=== PATIENT | male | born 1970 | race Caucasian/White ===

== ENCOUNTER 2017-04-19 09:49 | Emergency (ER) | payer OTHER ==
[2017-04-19 10:11] VITALS: TEMP 98.1; BMI 28.2
[2017-04-19] MEDS ORDERED: KETOROLAC TROMETHAMINE 30 MG/1 ML VIAL IVPUSH ONE (10:50)
[2017-04-19] MEDS ORDERED: SODIUM CHLORIDE 1,000 ML IV STA (10:50)
--- NOTE | 2017-04-19 10:50 | PDOC ---
History of Present Illness - General Chief Complaint: Pain, Acute Stated Complaint: PELVIC PAIN Time Seen by Provider: 04/19/17 10:42 History Source: Patient - History of Present Illness Timing/Duration: reports: getting worse Abdominal Pain Onset Location: reports: flank Past History - Past Medical History Allergies/Adverse Reactions: Allergies Allergy/AdvReac Type Severity Reaction Status Date / Time Penicillins Allergy Verified 04/19/17 10:08 Home Medications: Ambulatory Orders Polyethylene Glycol 3350 [Miralax (For Daily Use) -] 17 gm PO DAILY #1 bottle - Suicide/Smoking/Psychosocial Hx Smoking History: Never smoked Review of Systems - Review of Systems Constitutional: No: Chills, Fever ABD/GI: No: Constipated, Diarrhea, Nausea, Vomiting : Yes: Flank Pain. No: Dysuria, Hematuria *Physical Exam - Vital Signs Last Vital Signs Temp Pulse Resp BP Pulse Ox 98.1 F 74 19 103/73 97 04/19/17 10:08 04/19/17 10:08 04/19/17 10:08 04/19/17 10:08 04/19/17 10:08 - Physical Exam General Appearance: Yes: Appropriately Dressed. No: Apparent Distress HEENT: positive: Normal Voice Neck: positive: Supple Respiratory/Chest: negative: Respiratory Distress Gastrointestinal/Abdominal: positive: Tender (to RLQ w/ ?RCVAT), Soft Musculoskeletal: positive: Normal Inspection Integumentary: positive: Dry, Warm Neurologic: positive: Fully Oriented, Alert, Normal Mood/Affect ED Treatment Course - LABORATORY CBC & Chemistry Diagram: 04/19/17 11:11 04/19/17 11:11 - RADIOLOGY Radiology Studies Ordered: Category Date Time Status ABDOMEN & PELVIS CT W/O CONTR [CT] Stat CT Scan 04/19/17 10:47 Ordered Medical Decision Making - Medical Decision Making 04/19/17 10:47 46-year-old male, s/p back surgery 3 years ago, here with right flank pain 1 week, getting worse. Denies dysuria, hematuria, nausea, vomiting, change in bowel movements, fever or chills. No known history of kidney stones and no history of similar symptoms in the past See exam R flank pain Renal colic vs appy, no e/o hernia or torsion -pain control -IVF -labs/ua -CT 04/19/17 11:23 Ua neg for bld or s/o infection. CT r/o appy pending 04/19/17 13:[address] negative for appendicitis but shows moderate stool retention in right colon. There is also diffuse hepatic steatosis and cyst versus nodule to right renal. Patient aware of findings. Will start on bowel regimen at home and have patient follow-up with his PMD. Reasons to return discussed with patient who is currently asymptomatic *DC/Admit/Observation/Transfer Diagnosis at time of Disposition: Abdominal pain Qualifiers: Abdominal location: right lower quadrant Qualified Code(s): R10.31 - Right lower quadrant pain Constipation Qualifiers: Constipation type: other constipation type Qualified Code(s): K59.09 - Other constipation - Discharge Dispostion Disposition: HOME - Prescriptions Prescriptions: Polyethylene Glycol 3350 [Miralax (For Daily Use) -] 17 gm PO DAILY #1 bottle - Referrals - Patient Instructions Printed Discharge Instructions: Constipation Additional Instructions: Tus laboratorios fueron normales. Mcmahon tomografa axial computarizada fue negativa en busca de signos de infeccin, kenia muestra estreimiento, ms an en el lado derecho, lo que podra explicar mcmahon dolor. Hemos enviado un medicamento llamado MiraLAX a mcmahon farmacia. Broderick segn lo dirigido. Tambin paty muchos lquidos y aumente la fibra en mcmahon dieta, marce frutas y verduras. Si los sntomas empeoran, regrese a la lili de emergencias, de lo contrario rupert un seguimiento con mcmahon PMD - Post Discharge Activity
[2017-04-19] MEDS ORDERED: KETOROLAC TROMETHAMINE 30 MG/1 ML VIAL ONE (10:55)
[2017-04-19 11:18] LABS: URINE APPEARANCE CLEAR; URINE BILIRUBIN NEGATIVE (NEGATIVE); URINE BLOOD NEGATIVE (NEGATIVE); URINE COLOR YELLOW; URINE GLUCOSE (UA) NEGATIVE (NEGATIVE); URINE KETONE NEGATIVE (NEGATIVE); URINE LEUK ESTERASE NEGATIVE (NEGATIVE); URINE NITRITE NEGATIVE (NEGATIVE); URINE PROTEIN NEGATIVE (NEGATIVE)
[2017-04-19 11:21] LABS: BASO % 0.7 % (0-2.0); EOS % 7.6 % (0-4.5); HEMATOCRIT 41.7 % (35.4-49); HEMOGLOBIN 13.8 GM/dL (11.7-16.9); LYMPH % 32.5 % (8-40); MCH 28.4 pg (25.7-33.7); MCHC 33.1 g/dl (32.0-35.9); MEAN CELL VOLUME 85.9 fl (80-96); MEAN PLT VOLUME 8.3 fl (7.5-11.1); MONO % 7.9 % (3.8-10.2); NEUT % 51.3 % (42.8-82.8); PLATELET COUNT 248 K/MM3 (134-434); RBC 4.86 M/mm3 (4.00-5.60); RDW 13.5 % (11.9-15.9); WHITE BLOOD COUNT 7.5 K/mm3 (4.0-10.0)
[2017-04-19 11:46] LABS: ALBUMIN 3.8 g/dl (3.4-5.0); ANION GAP 10 (8-16); BLOOD UREA NITROGEN 15 mg/dL (7-18); CALCIUM 8.7 mg/dL (8.5-10.1); CHLORIDE 104 mmol/L (98-107); CO2 26 mmol/L (21-32); GLUCOSE,RANDOM 89 mg/dL (74-106); POTASSIUM 4.1 mmol/L (3.5-5.1); SGOT/AST 34 U/L (15-37); SGPT/ALT 66 U/L (12-78); SODIUM 140 mmol/L (136-145)
[2017-04-19 11:48] LABS: ALK PHOS 64 U/L (45-117); BILIRUBIN,TOTAL 0.3 mg/dL (0.2-1.0); TOT PROT 7.2 g/dl (6.4-8.2)
--- NOTE | 2017-04-19 12:02 | PDOC ---
*Physical Exam - Vital Signs Last Vital Signs Temp Pulse Resp BP Pulse Ox 98.1 F 74 19 103/73 97 04/19/17 10:08 04/19/17 10:08 04/19/17 10:08 04/19/17 10:08 04/19/17 10:08 - Physical Exam Comments: 04/19/17 12:02 The patient was examined by GARTH Tapia under my direct supervision. I personally evaluated the patient. I concur with the above findings and the plan of care. ED Treatment Course - LABORATORY CBC & Chemistry Diagram: 04/19/17 11:11 04/19/17 11:11 - ADDITIONAL ORDERS Additional order review: Laboratory Results 04/19/17 11:00 Urine Color Yellow Urine Appearance Clear Urine pH 5.0 Ur Specific [place] 1.027 Urine Protein Negative Urine Glucose (UA) Negative Urine Ketones Negative Urine Blood Negative Urine Nitrite Negative Urine Bilirubin Negative Urine Urobilinogen 2.0 Ur Leukocyte Esterase Negative 04/19/17 11:11 RBC 4.86 MCV 85.9 MCHC 33.1 RDW 13.5 MPV 8.3 Neutrophils % 51.3 Lymphocytes % 32.5 Monocytes % 7.9 Eosinophils % 7.6 H Basophils % 0.7 - Medications Given in the ED: ED Medications Discontinued Medications Generic Name Dose Route Start Last Admin Trade Name Freq PRN Reason Stop Dose Admin Sodium Chloride 1,000 mls @ 1,000 mls/hr 04/19/17 10:50 04/19/17 11:12 Normal Saline - IV 04/19/17 11:49 1,000 mls/hr ASDIR STA Administration Ketorolac Tromethamine 30 mg 04/19/17 10:50 04/19/17 11:16 Toradol Injection - IVPUSH 04/19/17 10:51 30 mg ONCE ONE Administration
[2017-04-19 14:00] VITALS: BP 108/77; PULSE 68
== END 2017-04-19 14:06 | disposition home or self-care (01) ==
LOC: JER 09:49 → EDBD 09:49 → JER 14:06
PROC: 3E0333Z Introduction of Anti-inflammatory into Peripheral Vein, Percutaneous Approach (ICD-10-PCS; principal; 2017-04-19)
PROC: 3E0337Z Introduction of Electrolytic and Water Balance Substance into Peripheral Vein, Percutaneous Approach (ICD-10-PCS; 2017-04-19)
DX: R10.31 Right lower quadrant pain (principal); K59.09 Other constipation
CPT/HCPCS: 36415; 74177-TC; 80053; 81003; 85025; 99283-25